=== PATIENT | male | born 1985 | race Caucasian/White ===

== ENCOUNTER 2017-05-14 21:17 | Emergency (ER) | payer OTHER ==
[~2017-05-14 21:17] MED LIST: ISOVUE-370 76%-LOCM 1 ML ONE
[2017-05-14] MEDS ORDERED: Ketorolac Tromethamine 30 MG/ML VIAL ONE (22:07)
[2017-05-14] MEDS ORDERED: Lorazepam 2 MG/ML VIAL ONE (22:07)
[2017-05-14 22:19] LABS: #Basophils 0.1 thou/uL (0.0-0.2); #Eosinphils 0.2 thou/uL (0.0-0.7); #Lymphocytes 2.3 thou/uL (1.20-3.40); #Monocytes 1.3 thou/uL (0.11-0.59); #Neutrophils 8.5 thou/uL (1.40-6.50); %Basophils 0.9 % (0.0-1.0); %Eosinophils 1.8 % (0.0-10.0); %Lymphocytes 18.7 % (21.0-51.0); %Monocytes 10.4 % (0.0-10.0); %Neutrophils 68.2 % (42.0-75.0); Mean Corpuscular HGB CONC 34.2 g/dL (32.0-36.0); Mean Corpuscular Hemoglobin 31.3 pg (27.0-31.0); Mean Corpuscular Volume 91.7 fl (80.0-94.0); Mean Platelet Volume 8.7 fL (7.4-10.4); Platelet Count 259 thou/uL (130-400); RBC Distribution Width 12.7 % (11.5-14.5); Red Blood Cell (RBC) Count 5.73 mill/uL (4.70-6.10); White Blood Cell (WBC) Count 12.5 thou/uL (4.8-10.8)
[2017-05-14 22:28] LABS: ALT (SGPT) 74 U/L (8-55); AST (SGOT) 29 U/L (5-34); Albumin 4.2 g/dL (3.5-5.0); Alkaline Phosphatase 79 U/L (40-150); Anion Gap 13 mmol/L (10-20); BUN (Urea Nitrogen) 8 mg/dL (8.9-20.6); Bilirubin, Total 0.4 mg/dL (0.2-1.2); Calc. Creatinine Clearance 0 mL/min (70-130); Calcium 9.8 mg/dL (7.8-10.44); Carbon Dioxide 24 mmol/L (22-29); Chloride 106 mmol/L (98-107); Estimated GFR-MDRD Greater than 90; Globulin 3.2 g/dL (2.4-3.5); Glucose 78 mg/dL (70-105); Lipase 43 U/L (8-78); Potassium 4.1 mmol/L (3.5-5.1); Protein, Total 7.4 g/dL (6.0-8.3); Sodium 139 mmol/L (136-145)
[2017-05-14] MEDS ORDERED: Morphine 4 MG/ML VIAL ONE (23:11)
[2017-05-14 23:27] LABS: Bilirubin Negative (Negative); Clarity TURBID (Clear); Glucose, Urine (Dipstick) Negative (Negative); Leukocyte Negative (Negative); Nitrite Negative (Negative); Protein, Urine (Dipstick) 100 mg/dL (Neg-Trace); Specific Gravity, Urine 1.027 (1.002-1.036)
[2017-05-14 23:29] LABS: Bacteria/HPF None Seen HPF (None Seen); Hyaline Casts/LPF 0-3 HYALINE CAST LPF (0-3 Hyaline); Pathc Cast-AUWi Flag 0.43 (0-2.49); Squamous Epithelial None Seen HPF (0-3); WBC/HPF 0-3 HPF (0-3)
[2017-05-14 23:39] LABS: Blood, Urine Negative (Negative); Crystals/HPF 2+ AMORPH PHOS HPF (Negative); RBC/HPF 0-3 HPF (0-3)
--- NOTE | 2017-05-15 00:08 | CT ---
CT ABDOMEN AND PELVIS WITH IV CONTRAST 05/14/17 HISTORY: Abdominal pain that started four days ago. Pain is located mainly in the right lower quadrant. COMPARISON: 05/13/17 FINDINGS: The lung bases, liver, spleen, pancreas, bilateral adrenal glands, kidneys, and abdominal aorta demon strate a normal CT appearance for phase of imaging. The urinary bladder is decompressed and not well evaluated. The appendix is visualized and normal in caliber. No enlarged lymph nodes are seen, but does appear to be mild increase in number of mesenteric lymph n odes. This is overall nonspecific but can be seen with mesenteric adenitis. There is no free fluid se en in the abdomen or pelvis. There has been no interval change compared to study one day ago. IMPRESSION: No acute findings are seen in the abdomen or pelvis. However, there is mild increased number of lymph nodes throughout the mesentery which is overall nonspecific. Mesenteric adenitis could not be entire ly excluded. POS: SHIRA
[2017-05-15] MEDS ORDERED: Sucralfate 1 GM/10 ML UDCUP ONE (00:26)
== END 2017-05-15 00:56 | disposition home or self-care (01) ==
LOC: ERS 21:17
DX: R10.31 Right lower quadrant pain (principal); I10 Essential (primary) hypertension; F98.8 Other specified behavioral and emotional disorders with onset usually occurring in childhood and adolescence; F41.9 Anxiety disorder, unspecified; Z87.891 Personal history of nicotine dependence; Z79.899 Other long term (current) drug therapy; Z79.891 Long term (current) use of opiate analgesic
CPT/HCPCS: 74177; 80053; 81003; 81015; 83605; 83690; 85025; 96361; 96374; 96375; J1885; J2060; J2270

== ENCOUNTER 2017-12-08 16:50 | Emergency (ER) | payer OTHER | END 2017-12-08 19:25 | disposition home or self-care (01) | LOC: ERS 16:50 | DX: K85.90 Acute pancreatitis without necrosis or infection, unspecified (principal); Z71.6 Tobacco abuse counseling; I10 Essential (primary) hypertension; F90.9 Attention-deficit hyperactivity disorder, unspecified type; F41.9 Anxiety disorder, unspecified; F17.210 Nicotine dependence, cigarettes, uncomplicated; Z79.899 Other long term (current) drug therapy | CPT/HCPCS: 99406 ==

== ENCOUNTER 2017-12-12 10:00 | Outpatient (CLI) | payer OTHER ==
--- NOTE | 2017-12-12 15:10 | NM ---
NUCLEAR MEDICINE HEPATOBILIARY SCAN WITH EJECTION FRACTION: HISTORY: A 32-year-old male with a history of unspecified abdominal pain. TECHNIQUE: The patient was injected with 5.3 millicuries of technetium 99m mebrofenin, intravenously. FINDINGS: There was prompt uptake of the tracer by the liver, with excretin into the gallbladder. At the 60 mi nute time interval, the patient was given 8 oz of Ensure, orally, for gallbladder ejection evaluation . At the 47 minute time interval, there was approximately 55% ejection. This is within normal limits f or Ensure. IMPRESSION: Normal nuclear medicine hepatobiliary scan and ejection fraction. POS: SHAY
== END 2017-12-12 10:01 | disposition home or self-care (01) ==
LOC: NM 10:00
PROVIDERS: ATTEND Specialist
DX: R10.9 Unspecified abdominal pain (principal)
CPT/HCPCS: 78227; A9537